=== PATIENT | female | born 1980 | race African-American/Black ===

== ENCOUNTER 2018-08-24 23:45 | Emergency (ER) | payer OTHER, SELFPAY ==
[2018-08-25] MEDS ORDERED: Benzonatate 100 MG CAP ONE (00:15)
[2018-08-25] MEDS ORDERED: Ibuprofen 800 MG TAB ONE (00:15)
== END 2018-08-25 00:40 | disposition home or self-care (01) ==
LOC: ERS 23:45
DX: J06.9 Acute upper respiratory infection, unspecified (principal); F17.210 Nicotine dependence, cigarettes, uncomplicated
CPT/HCPCS: 87804; 99283

== ENCOUNTER 2019-07-04 18:28 | Emergency (ER) | payer OTHER, SELFPAY ==
[2019-07-04] MEDS ORDERED: Ibuprofen 800 MG TAB ONE (19:14)
--- NOTE | 2019-07-04 19:35 | RAD ---
EXAM: Chest PA and lateral: HISTORY: Cough COMPARISON: 09/16/2013 FINDINGS: Heart: Normal cardiac silhouette Aorta: Unremarkable Pulmonary vessels: Normal Costophrenic angles: Costophrenic angles are clear. Lungs: No consolidation or masses. Pneumothorax: No pneumothorax Osseous structures: No osseous abnormalities IMPRESSION: No acute cardiopulmonary process.
== END 2019-07-04 20:03 | disposition home or self-care (01) ==
LOC: ERS 18:28
DX: J02.9 Acute pharyngitis, unspecified (principal); F17.210 Nicotine dependence, cigarettes, uncomplicated; Z71.6 Tobacco abuse counseling
CPT/HCPCS: 71046; 87070; 87081; 87430; 99406

== ENCOUNTER 2025-05-19 13:29 | Emergency (ER) | payer OTHER ==
[2025-05-19] MEDS ORDERED: Acetaminophen 500 MG TAB ONE (15:04)
[2025-05-19] MEDS ORDERED: Ibuprofen 800 MG TAB ONE (15:05)
[2025-05-19] MEDS ORDERED: Dexamethasone 10 MG/ML VIAL ONE (15:14)
[2025-05-19] MEDS ORDERED: cefTRIAXone (ROCEPHIN) 1 GM VIAL ONE (15:15)
== END 2025-05-19 15:46 | disposition home or self-care (01) ==
LOC: ERS 13:29
DX: J18.9 Pneumonia, unspecified organism (principal); F17.210 Nicotine dependence, cigarettes, uncomplicated
CPT/HCPCS: 71045; 87428; 93005; 96372; J0696; J1100